=== PATIENT | male | born 1995 | race Two or more races ===

== ENCOUNTER 2019-01-02 15:11 | Emergency (ER) | payer OTHER ==
--- NOTE | 2019-01-02 15:13 | ER Report ---
History and Physical Time Seen By MD: 15:13 HPI/ROS CHIEF COMPLAINT: Left shoulder pain HISTORY OF PRESENT ILLNESS: Patient is a 23-year-old male who is otherwise healthy who was skiing and sclerae ski area fell onto his left side striking his left shoulder now is having pain and difficulty with movement at the left shoulder. No prior injury. He reports no numbness or tingling to his hand. Patient denies head injury or loss of consciousness. Patient is right-hand dominant. REVIEW OF SYSTEMS: Respiratory: No cough, no dyspnea. Cardiovascular: No chest pain, no palpitations. Gastrointestinal: No vomiting, no abdominal pain. Musculoskeletal: Left shoulder pain Allergies: Coded Allergies: No Known Drug Allergies (Unverified , 01/02/19) Home Meds Active Scripts Hydrocodone Bit/Acetaminophen (HYDROCODON-ACETAMINOPHEN 5-325) 1 Each Tablet, 1 EACH PO Q4H PRN for PAIN, #12 TAB 0 Refills Prov:BORIS MARCIAL MD 01/02/19 Past Medical/Surgical History Noncontributory towrads this chief complaint Constitutional Vital Sign - Last 24 Hours 01/02/19 01/02/19 01/02/19 01/02/19 15:24 15:26 15:31 15:34 Temp 97.3 Pulse 98 87 97 B/P (MAP) 139/93 (108) 139/93 Pulse Ox 92 95 92 01/02/19 01/02/19 01/02/19 01/02/19 15:36 15:41 15:46 15:51 Pulse 88 92 93 83 Pulse Ox 94 93 87 95 01/02/19 01/02/19 01/02/19 01/02/19 15:56 16:01 16:06 16:11 Pulse 86 89 88 84 Pulse Ox 96 94 96 94 01/02/19 01/02/19 01/02/19 01/02/19 16:16 16:21 16:26 16:30 Pulse 87 82 80 B/P (MAP) 140/89 (106) Pulse Ox 93 89 98 01/02/19 01/02/19 01/02/19 01/02/19 16:31 16:33 16:35 16:36 Pulse ??? 97 Resp 12 9 B/P (MAP) 152/100 (117) 146/96 (113) Pulse Ox 99 100 201/02/19 01/02/19 01/02/19 16:40 16:41 16:45 16:46 Pulse 104 102 Resp 12 7 B/P (MAP) 161/108 (125) 161/104 (123) Pulse Ox 99 98 01/02/19 01/02/19 01/02/19 01/02/19 16:50 16:51 16:55 16:56 Pulse 95 95 Resp 9 56 B/P (MAP) 152/96 (114) 158/99 (118) Pulse Ox 99 98 01/02/19 01/02/19 01/02/19 01/02/19 17:00 17:01 17:05 17:06 Pulse 93 89 Resp 13 16 B/P (MAP) 150/92 (111) 149/90 (109) Pulse Ox 99 99 01/02/19 01/02/19 01/02/19 01/02/19 17:10 17:15 17:20 17:25 Pulse 82 82 81 Resp 12 10 20 B/P (MAP) 142/93 (109) 138/85 (102) 134/79 (97) 130/81 (97) Pulse Ox 97 97 97 01/02/19 01/02/19 01/02/19 01/02/19 17:30 17:35 17:40 17:45 Pulse ? Resp 9 8 7 B/P (MAP) 135/80 (98) 133/83 (100) 133/82 (99) Pulse Ox 99 98 98 01/02/19 01/02/19 01/02/19 01/02/19 17:49 17:50 17:55 18:00 Pulse 88 87 84 Resp 14 18 16 B/P (MAP) 129/78 (95) 144/81 (102) Pulse Ox 92 90 90 01/02/19 01/02/19 01/02/19 01/02/19 18:05 18:10 18:15 18:30 Pulse 84 85 90 85 Resp 19 22 15 22 B/P (MAP) 137/80 (99) Pulse Ox 90 91 88 90 01/02/19 01/02/19 01/02/19 18:45 19:00 19:15 Pulse 82 81 80 Resp 10 15 15 B/P (MAP) 133/79 (97) Pulse Ox 91 90 91 Physical Exam General Appearance: The patient is alert, has no immediate need for airway protection and no current signs of toxicity. Eyes: Pupils equal and round no injection. Respiratory: Chest is non tender, lungs are clear to auscultation. Cardiac: regular rate and rhythm Gastrointestinal: Abdomen is soft and non tender, no masses, bowel sounds normal. Musculoskeletal: Neck: Neck is supple and non tender. Examination of the left shoulder shows a step-off deformity that seems to be consistent with an acute dislocation. The clavicle is nontender. Patient has sensation over the deltoid. Examination of the Left hand reveals no acute deformity. The patient is able to give a thumbs up sign, is able to make an okay sign, and is able to AB duct the fingers. Sensation is intact over the dorsal 1st web space, the volar aspect of the 2nd finger, and the volar aspect of the 5th finger. Capillary refill is brisk. Medical Decision Making EKG/Imaging Imaging [place]ACILITY[place] [facility] [place]IENT NAME: Hebert Corrigan : 1995 MR: [id number] V: [id number] EXAM DATE: [id number] ORDERING PHYSICIAN: BORIS MARCIAL TECHNOLOGIST: Location: [facility] - [place], [place] Patient: Hebert Corrigan : 1995 Visit/Account:[id number] Date of Sevice: 01/02/2019 SHOULDER MIN 2 VIEWS LEFT Indication: possible dislocation Comparison: None. Findings: Anterior dislocation is seen of the left shoulder. Clavicle scapula and proximal humerus are intact. IMPRESSION: Anterior dislocation left shoulder. Report Dictated By: Warren Pan at 01/02/2019 4:28 PM Report E-Signed By: Warren Pan at 01/02/2019 4:28 PM WSN:[email or web address] [place]AC[place] [facility] [place]IENT NAME: Hebert Corrigan : 1995 MR: [id number] V: [id number] EXAM DATE: [id number] ORDERING PHYSICIAN: BORIS MARCIAL TECHNOLOGIST: Location: [facility] - [place], [place] Patient: Hebert Corrigan : 1995 Visit/Account:[id number] Date of Sevice: 01/02/2019 SHOULDER MIN 2 VIEWS LEFT Indication: post reduction Comparison: Left shoulder radiograph 01/02/2019 at 3:39 PM. Findings: Glenohumeral joint space demonstrates normal alignment, improved from the prior study. The clavicle scapula and proximal humerus are intact. IMPRESSION: Post reduction image demonstrates normal alignment of the left shoulder. Report Dictated By: Warren Pan at 01/02/2019 5:21 PM Report E-Signed By: Warren Pan at 01/02/2019 5:23 PM WSN:[email or web address] ED Course/Re-evaluation Clinical Indication for ER IV: IV Access ED Course 01/02/2019 4:49:22 pm Procedure: Procedural sedation. A pre-sedation evaluation was completed on the patient at 1620. Patient is an appropriate candidate for procedural sedation. The risks of the sedation were discussed with the patient. A time out was completed. The patient was reevaluated immediately prior to initiation of sedation. The patient was sedated with a total of 80 mg iv ketamine 60 iv propofol. The patient was monitored with continuous pulse oximetry; end tidal co2 and lunchroom monitor. There were no complications and no significant hypoxemia. I remained at the bedside for the sedation. The total time I spent in the procedural sedation was 15 minutes. Post sedation evaluation: Patient was alert and cooperative, hemodynamically stable with appropriate respiratory status, temperature and pain control without ongoing nausea and vomiting. Procedure: Dislocation reduction: The left shoulder was reduced in the usual fashion without complications. Post reduction the patient's neurovascular exam is normal. Post reduction x-ray demonstrates reduction of the joint to the anatomic position. The procedure was performed by myself. Patient reexamined at this time 01/02/2019 5:50:50 pm patient actually up and ambulatory to the restroom. GCS appears to be 15. Patient seems to be recovering from procedural sedation quite well. I will continue to observe in the emergency department. Decision to Disposition Date: Jan 02, 2019 Decision to Disposition Time: 19:30 Depart Departure Latest Vital Signs Vital Signs Date Time Temp Pulse Resp B/P (MAP) Pulse Ox O2 Delivery O2 Flow Rate FiO2 01/02/19 19:15 80 15 91 01/02/19 19:00 133/79 (97) 01/02/19 15:34 97.3 Impression: Primary Impression: Anterior shoulder dislocation Condition: Improved Disposition: HOME OR SELF-CARE Referrals: [facility] New Scripts Hydrocodone Bit/Acetaminophen (HYDROCODON-ACETAMINOPHEN 5-325) 1 Each Tablet 1 EACH PO Q4H PRN for PAIN, #12 TAB 0 Refills Prov: BORIS MARCIAL MD 01/02/19 Patient Instructions: How to Use a Sling (GEN), Moderate Sedation (DC), Shoulder Dislocation (GEN), Shoulder Dislocation Exercises (GEN) Additional Instructions: You will need to schedule a follow-up appointment with orthopedics; we will provide you with information to see [facility] here and [place] however if you prefer you can follow up with an orthopedic physician in your area. Orthopedics and spine center [facility] is located on [address] in [place], [place], phone number [phone] you should call 1st thing tomorrow to schedule a follow-up appointment and evaluation for your left shoulder dislocation. Wear the sling for the next 2 days and then discontinue use of sling and start range of motion exercises Problem Qualifiers Primary Impression: Anterior shoulder dislocation Encounter type: initial encounter Laterality: left Qualified Codes: S43.015A - Anterior dislocation of left humerus, initial encounter BORIS MARCIAL MD Jan 02, 2019 15:13
[2019-01-02] MEDS ORDERED: KETOROLAC 15 MG/ML VIAL IVP ONE (15:25)
[2019-01-02] MEDS ORDERED: fentaNYL CITR 100 MCG/2 ML AMP IVP ONE (15:40)
[2019-01-02] MEDS ORDERED: ONDANSETRON 4 MG/2 ML VIAL IVP ONE (15:40)
[2019-01-02] MEDS ORDERED: KETAMINE HCL 500 MG/5 ML VIAL IVP ONE (16:00)
[2019-01-02] MEDS ORDERED: PROPOFOL EMUL 10MG/ML 20 ML VL IVP ONE (16:00)
[2019-01-02] MEDS ORDERED: NS(*) 0.9% 1000 ML BAG 1,000 ML IV ONE (16:25)
--- NOTE | 2019-01-02 16:34 | RADIOLOGY IMAGING REPORT ---
FACILITY: [facility] PATIENT NAME: Hebert Corrigan : 1995 MR: [id number] V: [id number] EXAM DATE: ORDERING PHYSICIAN: BORIS MARCIAL TECHNOLOGIST: Location: [facility] - [place] Patient: Hebert Corrigan : 1995 Visit/Account:[id number] Date of Sevice: 01/02/2019 SHOULDER MIN 2 VIEWS LEFT Indication: possible dislocation Comparison: None. Findings: Anterior dislocation is seen of the left shoulder. Clavicle scapula and proximal humerus a re intact. IMPRESSION: Anterior dislocation left shoulder. Report Dictated By: Warren Pan at 01/02/2019 4:28 PM Report E-Signed By: Warren aPn at 01/02/2019 4:28 PM WSN:[email or web address]
[2019-01-02] MEDS ORDERED: LOR5/325 PO (17:26)
--- NOTE | 2019-01-02 17:28 | RADIOLOGY IMAGING REPORT ---
FACILITY: [facility] PATIENT NAME: Hebert Corrigan : 1995 MR: [id number] V: [id number] EXAM DATE: ORDERING PHYSICIAN: BORIS MARCIAL TECHNOLOGIST: Location: [facility] Patient: Hebert Corrigan : 1995 Visit/Account:[id number] Date of Sevice: 01/02/2019 SHOULDER MIN 2 VIEWS LEFT Indication: post reduction Comparison: Left shoulder radiograph 01/02/2019 at 3:39 PM. Findings: Glenohumeral joint space demonstrates normal alignment, improved from the prior study. The clavicle scapula and proximal humerus are intact. IMPRESSION: Post reduction image demonstrates normal alignment of the left shoulder. Report Dictated By: Warren Pan at 01/02/2019 5:21 PM Report E-Signed By: Warren Pan at 01/02/2019 5:23 PM WSN:[email or web address]
[2019-01-02 19:00] VITALS: BP 133/79
[2019-01-02] MEDS ORDERED: ACET/HYDROC 5/325MG TH ER ONLY 2 TAB/BOTTLE PO ONE (19:40)
== END 2019-01-02 19:42 | disposition home or self-care (01) ==
LOC: ER 16:02
DX: S43.015A Anterior dislocation of left humerus, initial encounter (principal); W18.39XA Other fall on same level, initial encounter; Y93.23 Activity, snow (alpine) (downhill) skiing, snowboarding, sledding, tobogganing and snow tubing
CPT/HCPCS: 23650; 73030; 96361; 96374; 96375; 99152; 99285; A4565; J1885; J2405; J2704; J3010; J7030